=== PATIENT | male | born 1970 | race Caucasian/White ===

== ENCOUNTER → 2022-07-14 | Outpatient (CLI) | payer BC ==
--- NOTE | 2022-07-14 20:23 | CT ---
EXAMINATION TYPE: CT abdomen pelvis w con DATE OF EXAM: 07/14/2022 COMPARISON: None. HISTORY: abdominal pain, hx of hernia. Diverticulitis per order. CT DLP: 513.7 mGycm, Automated Exposure Control for Dose Reduction was Utilized. CONTRAST: CT scan of the abdomen and pelvis is performed with oral and with IV Contrast, patient injected with 100 mL of Isovue 300. FINDINGS: LUNG BASES: No significant abnormality is appreciated. LIVER/GB: No significant abnormality is appreciated. PANCREAS: No significant abnormality is seen. SPLEEN: No significant abnormality is seen. ADRENALS: No significant abnormality is seen. KIDNEYS: Symmetric corticomedullary uptake and excretion without hydronephrosis seen bilaterally. The re is 7 mm round low dense lesion lower pole right kidney series 7 image 35 too small to further mary acterize presumed benign. BOWEL: Oral contrast has passed through stomach which is poorly distended and suboptimally evaluated. Contrast extends to the level of the distal transverse colon. There is no suspicious small or large bowel dilatation. Suboptimal evaluation of the distal bowel. Mild to moderate concentric wall thicken ing in the sigmoid colon without significant surrounding fat stranding in the left pelvis. PROSTATE/SEMINAL VESICLES: Prostate gland upper limits of normal in size. LYMPH NODES: No greater than 1cm abdominal or pelvic lymph nodes are appreciated. OSSEOUS STRUCTURES: Moderate to severe narrowing lumbosacral junction with vacuum disc phenomenon and endplate sclerosis. Posterior disc herniation L4-L5 level effaces the anterior thecal sac. Mild face t arthropathy in the lower lumbar spine. OTHER: Mild to moderate peripheral plaque of the aorta extends into branch vessels. IMPRESSION: Moderate concentric wall thickening proximal to mid sigmoid colon in the left pelvis with out surrounding fat stranding could reflect product of a uncomplicated colitis versus product of poor distention. Correlate clinically. Cannot entirely exclude neoplasm at this level. Correlate with col onoscopy advised that has not been performed in last 3 years. No significant diverticular disease or CT evidence for acute diverticulitis. No suspicious ventral wall or inguinal hernia.
== END | disposition home or self-care (01) ==
LOC: RADCTMAIN 15:31
PROVIDERS: ATTEND Surgery
DX: K57.32 Diverticulitis of large intestine without perforation or abscess without bleeding (principal)
CPT/HCPCS: 74177; Q9967

== ENCOUNTER 2022-08-11 10:28 | Day surgery (SDC) | payer BC ==
[~2022-08-11 10:28] MED LIST: LIDOCAINE 1% (10MG/ML) FOR IV START INTRADERMA PRN
[2022-08-11 10:59] VITALS: TEMP 97.2
[2022-08-11] MEDS: LACTATED RINGERS 1,000 ML IV SCH ×2 (11:05→11:32)
[2022-08-11] MEDS ORDERED: PROPOFOL 10 MG/ML 20 ML VIAL IV ONE (11:34)
--- NOTE | 2022-08-11 11:35 | P.GSHP ---
History of Present Illness H&P Date: 08/11/22 Chief Complaint: Colitis 51-year-old male here today for colonoscopy. Has been having some left lower quadrant pain. Underwent CAT scan showing some thickening of the sigmoid colon. No rectal bleeding or melena. No previous colonoscopy. Past Medical History Past Medical History: No Reported History Additional Past Medical History / Comment(s): first colonoscopy, abdominal pain thick lining on CT scan History of Any Multi-Drug Resistant Organisms: None Reported Past Surgical History: Appendectomy, Hernia Repair Additional Past Surgical History / Comment(s): jaw surgery, 5 hernia repairs groin and abdomen Past Anesthesia/Blood Transfusion Reactions: No Reported Reaction Additional Past Anesthesia/Blood Transfusion Reaction / Comment(s): no blood transfusions Smoking Status: Current every day smoker - Past Family History Mother History Unknown: Yes Additional Family Medical History / Comment(s): pt adopted Medications and Allergies Home Medications Medication Instructions Recorded Confirmed Type Acetaminophen [Tylenol] 650 mg PO Q6H PRN 07/31/22 08/11/22 History Unk Fish Oil 1 tab PO DAILY 07/31/22 08/11/22 History Allergies Allergy/AdvReac Type Severity Reaction Status Date / Time No Known Allergies Allergy Verified 08/11/22 10:55 Surgical - Exam Vital Signs Temp Pulse Resp BP Pulse Ox 97.2 F L 77 16 114/76 99 08/11/22 10:58 08/11/22 10:58 08/11/22 10:58 08/11/22 10:58 08/11/22 10:58 Physical exam: General: Well-developed, well-nourished HEENT: Normocephalic, sclerae nonicteric Abdomen: Nontender, nondistended Extremities: No edema Neuro: Alert and oriented Assessment and Plan (1) Colon cancer screening Narrative/Plan: Will proceed with colonoscopy at this time Current Visit: Yes Status: Acute Code(s): Z12.11 - ENCOUNTER FOR SCREENING FOR MALIGNANT NEOPLASM OF COLON SNOMED Code(s): 253702866
--- NOTE | 2022-08-11 11:55 | P.PCN ---
Date of Procedure: 08/11/22 Procedure(s) Performed: PREOPERATIVE DIAGNOSIS: Colitis POSTOPERATIVE DIAGNOSIS: Mild diverticulosis PROCEDURE: Colonoscopy ANESTHESIA: MAC SURGEON: Oziel García M.D. SPECIMENS: None ENDOSCOPIC PROCEDURE: The patient was placed on the endoscopy table in the left decubitus position. The Olympus colonoscope was inserted into the anus and passed under direct visualization to the base of the cecum. The appendiceal orifice was visualized. From that point the scope was slowly withdrawn inspecting all surfaces carefully. There were no neoplastic inflammatory or polypoid lesions throughout the cecum, ascending, transverse, descending, sigmoid and rectum. There was minimal diverticulosis noted in the sigmoid colon. Digital rectal examination was normal. The patient was taken to the recovery room in stable condition per anesthesia guidelines. RECOMMENDATIONS: Resume diet. Repeat colonoscopy 10 years.
[2022-08-11 12:21] VITALS: BP 122/80; PULSE 58; RESP 15
== END 2022-08-11 12:42 | disposition home or self-care (01) ==
LOC: ORWHC2ENDO 10:28
PROVIDERS: ATTEND Surgery
DX: K57.30 Diverticulosis of large intestine without perforation or abscess without bleeding (principal); K52.9 Noninfective gastroenteritis and colitis, unspecified; R10.32 Left lower quadrant pain; F17.210 Nicotine dependence, cigarettes, uncomplicated; Z90.49 Acquired absence of other specified parts of digestive tract; Z98.890 Other specified postprocedural states
CPT/HCPCS: 45378; J2704